=== PATIENT | male | born 1955 | race Caucasian/White ===

== ENCOUNTER 2018-12-10 09:41 | Emergency (ER) | payer BC, OTHER ==
[2018-12-10] MEDS ORDERED: diphenhydrAMINE 50 MG/ML VIAL ONE (10:05)
[2018-12-10] MEDS ORDERED: Ibuprofen 600 MG TAB ONE (10:06)
[2018-12-10] MEDS ORDERED: methylPREDNISolone Sod Succ/PF 125 MG/2 ML VIAL ONE (10:09)
[2018-12-10] MEDS ORDERED: Sterile Water 10 ML ONE (10:10)
== END 2018-12-10 11:40 | disposition home or self-care (01) ==
LOC: MADERS 09:41
DX: T63.441A Toxic effect of venom of bees, accidental (unintentional), initial encounter (principal); I10 Essential (primary) hypertension; F17.220 Nicotine dependence, chewing tobacco, uncomplicated
CPT/HCPCS: 96374; 96375; J1200; J2930